=== PATIENT | female | born 1940 | race Caucasian/White ===

== ENCOUNTER → 2021-09-01 | Outpatient (CLI) | payer MEDICARE ==
[2021-09-01 12:19] LABS: BASO # 0.08 K/mm3 (0.02-0.10); EOS # 0.08 K/mm3 (0.04-0.40); HEMOGLOBIN 8.7 g/dL (12.5-16.0); MEAN CELL VOLUME 88 fl (78-100); MEAN CORPUSCULAR HEMOGLOBIN 25 pg (27-31); MEAN CORPUSCULAR HGB CONC 28 g/dL (33-37); MEAN PLATELET VOLUME 10.3 fl (7.4-10.4); MONO # 0.98 K/mm3 (0.20-0.80); PLATELET COUNT 366 K/mm3 (130-400); RED BLOOD COUNT 3.52 M/mm3 (4.10-5.30); RED CELL DISTRIBUTION WIDTH 18.4 % (11.5-14.5); WHITE BLOOD COUNT 8.1 K/mm3 (4.8-10.8)
[2021-09-01 12:27] LABS: ALBUMIN 3.6 g/dL (3.4-4.8); POTASSIUM 4.2 mmol/L (3.5-5.1)
[2021-09-01 12:28] LABS: CALCIUM 8.8 mg/dL (8.3-10.5)
[2021-09-01 12:30] LABS: TOTAL PROTEIN 5.8 g/dL (6.2-8.1)
[2021-09-01 12:31] LABS: TOTAL BILIRUBIN 0.2 mg/dL (0.2-1.2)
== END ==
LOC: LAB 11:54
PROVIDERS: Internal Medicine
DX: D64.9 Anemia, unspecified (principal)

== ENCOUNTER → 2021-09-08 | Outpatient (CLI) | payer MEDICARE ==
[2021-09-08 13:05] LABS: BASO # 0.08 K/mm3 (0.02-0.10); EOS # 0.11 K/mm3 (0.04-0.40); EOS % 1.9 % (1.0-5.0); HEMATOCRIT 31.4 % (37.0-47.0); HEMOGLOBIN 9.1 g/dL (12.5-16.0); LYMPH# 1.58 K/mm3 (1.50-4.00); MEAN CELL VOLUME 87 fl (78-100); MEAN CORPUSCULAR HEMOGLOBIN 25 pg (27-31); MEAN CORPUSCULAR HGB CONC 29 g/dL (33-37); MEAN PLATELET VOLUME 10.2 fl (7.4-10.4); MONO # 0.65 K/mm3 (0.20-0.80); NEU # 3.45 K/mm3 (1.40-6.50); PLATELET COUNT 411 K/mm3 (130-400); RED BLOOD COUNT 3.61 M/mm3 (4.10-5.30); RED CELL DISTRIBUTION WIDTH 18.9 % (11.5-14.5); WHITE BLOOD COUNT 5.9 K/mm3 (4.8-10.8)
== END ==
LOC: LAB 12:32
PROVIDERS: Internal Medicine
DX: Z01.89 Encounter for other specified special examinations (principal)

== ENCOUNTER → 2021-10-19 | Outpatient (CLI) | payer MEDICARE ==
[2021-10-19 15:38] LABS: BASO # 0.06 K/mm3 (0.02-0.10); EOS # 0.08 K/mm3 (0.04-0.40); EOS % 1.2 % (1.0-5.0); HEMATOCRIT 36.2 % (37.0-47.0); HEMOGLOBIN 11.2 g/dL (12.5-16.0); LYMPH# 1.52 K/mm3 (1.50-4.00); MEAN CELL VOLUME 91 fl (78-100); MEAN CORPUSCULAR HEMOGLOBIN 28 pg (27-31); MEAN CORPUSCULAR HGB CONC 31 g/dL (33-37); MEAN PLATELET VOLUME 9.2 fl (7.4-10.4); MONO # 0.84 K/mm3 (0.20-0.80); NEU # 4.44 K/mm3 (1.40-6.50); PLATELET COUNT 284 K/mm3 (130-400); RED BLOOD COUNT 3.97 M/mm3 (4.10-5.30); RED CELL DISTRIBUTION WIDTH 18.2 % (11.5-14.5)
[2021-10-19 15:51] LABS: ALBUMIN 3.8 g/dL (3.4-4.8)
[2021-10-19 15:53] LABS: CALCIUM 9.4 mg/dL (8.3-10.5)
[2021-10-19 15:54] LABS: TOTAL PROTEIN 6.6 g/dL (6.2-8.1)
[2021-10-19 15:56] LABS: TOTAL BILIRUBIN 0.3 mg/dL (0.2-1.2)
== END ==
LOC: LAB 15:22
PROVIDERS: Internal Medicine
DX: D64.9 Anemia, unspecified (principal); J44.9 Chronic obstructive pulmonary disease, unspecified; K90.9 Intestinal malabsorption, unspecified

== ENCOUNTER → 2021-12-15 | Outpatient (CLI) | payer MEDICARE ==
[2021-12-15 16:52] LABS: BASO # 0.04 K/mm3 (0.02-0.10); EOS # 0.03 K/mm3 (0.04-0.40); EOS % 0.3 % (1.0-5.0); HEMATOCRIT 37.7 % (37.0-47.0); HEMOGLOBIN 11.9 g/dL (12.5-16.0); LYMPH# 1.92 K/mm3 (1.50-4.00); MEAN CELL VOLUME 95 fl (78-100); MEAN CORPUSCULAR HEMOGLOBIN 30 pg (27-31); MEAN CORPUSCULAR HGB CONC 32 g/dL (33-37); MEAN PLATELET VOLUME 9.2 fl (7.4-10.4); MONO # 0.88 K/mm3 (0.20-0.80); NEU # 6.58 K/mm3 (1.40-6.50); PLATELET COUNT 325 K/mm3 (130-400); RED BLOOD COUNT 3.99 M/mm3 (4.10-5.30); RED CELL DISTRIBUTION WIDTH 13.9 % (11.5-14.5); WHITE BLOOD COUNT 9.5 K/mm3 (4.8-10.8)
[2021-12-15 17:06] LABS: POTASSIUM 4.2 mmol/L (3.5-5.1)
[2021-12-15 17:07] LABS: CALCIUM 10.1 mg/dL (8.3-10.5)
[2021-12-15 17:08] LABS: TOTAL PROTEIN 7.2 g/dL (6.2-8.1)
[2021-12-15 17:10] LABS: TOTAL BILIRUBIN 0.3 mg/dL (0.2-1.2)
== END ==
LOC: LAB 16:05
PROVIDERS: Internal Medicine
DX: D64.9 Anemia, unspecified (principal); J44.9 Chronic obstructive pulmonary disease, unspecified; K21.9 Gastro-esophageal reflux disease without esophagitis; K92.89 Other specified diseases of the digestive system; K90.9 Intestinal malabsorption, unspecified

== ENCOUNTER → 2022-03-03 | Outpatient (CLI) | payer MEDICARE ==
[2022-03-03 11:31] LABS: BASO # 0.05 K/mm3 (0.02-0.10); EOS # 0.31 K/mm3 (0.04-0.40); EOS % 4.6 % (1.0-5.0); HEMATOCRIT 30.2 % (37.0-47.0); HEMOGLOBIN 9.7 g/dL (12.5-16.0); LYMPH# 1.19 K/mm3 (1.50-4.00); MEAN CELL VOLUME 98 fl (78-100); MEAN CORPUSCULAR HEMOGLOBIN 32 pg (27-31); MEAN CORPUSCULAR HGB CONC 32 g/dL (33-37); MEAN PLATELET VOLUME 10.1 fl (7.4-10.4); MONO # 0.95 K/mm3 (0.20-0.80); NEU # 4.29 K/mm3 (1.40-6.50); PLATELET COUNT 347 K/mm3 (130-400); RED BLOOD COUNT 3.08 M/mm3 (4.10-5.30); RED CELL DISTRIBUTION WIDTH 13.7 % (11.5-14.5); WHITE BLOOD COUNT 6.8 K/mm3 (4.8-10.8)
[2022-03-03 11:47] LABS: ALBUMIN 3.4 g/dL (3.4-4.8); POTASSIUM 4.1 mmol/L (3.5-5.1)
[2022-03-03 11:48] LABS: CALCIUM 8.7 mg/dL (8.3-10.5)
[2022-03-03 11:50] LABS: TOTAL PROTEIN 5.9 g/dL (6.2-8.1)
[2022-03-03 11:51] LABS: TOTAL BILIRUBIN 0.4 mg/dL (0.2-1.2)
[2022-03-03 11:56] LABS: MAGNESIUM 1.83 mg/dL (1.60-2.60)
== END ==
LOC: LAB 10:18
PROVIDERS: Internal Medicine
DX: I10 Essential (primary) hypertension (principal); K90.9 Intestinal malabsorption, unspecified; E03.8 Other specified hypothyroidism

== ENCOUNTER → 2022-03-05 | Outpatient (CLI) | payer MEDICARE | LOC: RAD 13:12 | DX: N20.0 Calculus of kidney (principal); N26.1 Atrophy of kidney (terminal); K44.9 Diaphragmatic hernia without obstruction or gangrene; N28.1 Cyst of kidney, acquired | CPT/HCPCS: Q9967 ==

== ENCOUNTER → 2022-04-05 | Outpatient (CLI) | payer MEDICARE ==
[2022-04-05 15:06] LABS: BASO # 0.06 K/mm3 (0.02-0.10); EOS # 0.15 K/mm3 (0.04-0.40); EOS % 2.1 % (1.0-5.0); HEMATOCRIT 36.6 % (37.0-47.0); HEMOGLOBIN 11.4 g/dL (12.5-16.0); LYMPH# 1.56 K/mm3 (1.50-4.00); MEAN CELL VOLUME 98 fl (78-100); MEAN CORPUSCULAR HEMOGLOBIN 31 pg (27-31); MEAN CORPUSCULAR HGB CONC 31 g/dL (33-37); MEAN PLATELET VOLUME 9.1 fl (7.4-10.4); MONO # 0.69 K/mm3 (0.20-0.80); NEU # 4.69 K/mm3 (1.40-6.50); PLATELET COUNT 263 K/mm3 (130-400); RED BLOOD COUNT 3.72 M/mm3 (4.10-5.30); RED CELL DISTRIBUTION WIDTH 14.3 % (11.5-14.5); WHITE BLOOD COUNT 7.2 K/mm3 (4.8-10.8)
[2022-04-05 15:17] LABS: ALBUMIN 4.1 g/dL (3.4-4.8); POTASSIUM 4.3 mmol/L (3.5-5.1)
[2022-04-05 15:18] LABS: CALCIUM 9.9 mg/dL (8.3-10.5)
[2022-04-05 15:20] LABS: TOTAL PROTEIN 6.9 g/dL (6.2-8.1)
[2022-04-05 15:21] LABS: TOTAL BILIRUBIN 0.3 mg/dL (0.2-1.2)
[2022-04-05 15:26] LABS: MAGNESIUM 1.72 mg/dL (1.60-2.60)
== END ==
LOC: LAB 14:50
PROVIDERS: Internal Medicine
DX: I10 Essential (primary) hypertension (principal); K90.9 Intestinal malabsorption, unspecified; E03.8 Other specified hypothyroidism; J44.9 Chronic obstructive pulmonary disease, unspecified

== ENCOUNTER → 2022-06-08 | Outpatient (CLI) | payer MEDICARE ==
[2022-06-08 12:56] LABS: BASO # 0.06 K/mm3 (0.02-0.10); EOS # 0.08 K/mm3 (0.04-0.40); EOS % 1.3 % (1.0-5.0); HEMATOCRIT 37.9 % (37.0-47.0); HEMOGLOBIN 11.9 g/dL (12.5-16.0); LYMPH# 1.56 K/mm3 (1.50-4.00); MEAN CELL VOLUME 98 fl (78-100); MEAN CORPUSCULAR HEMOGLOBIN 31 pg (27-31); MEAN CORPUSCULAR HGB CONC 31 g/dL (33-37); MEAN PLATELET VOLUME 9.7 fl (7.4-10.4); MONO # 0.58 K/mm3 (0.20-0.80); NEU # 3.88 K/mm3 (1.40-6.50); PLATELET COUNT 267 K/mm3 (130-400); RED BLOOD COUNT 3.88 M/mm3 (4.10-5.30); RED CELL DISTRIBUTION WIDTH 14.1 % (11.5-14.5); WHITE BLOOD COUNT 6.2 K/mm3 (4.8-10.8)
[2022-06-08 13:00] LABS: POTASSIUM 4.3 mmol/L (3.5-5.1)
[2022-06-08 13:01] LABS: CALCIUM 9.1 mg/dL (8.3-10.5)
[2022-06-08 13:02] LABS: TOTAL PROTEIN 6.9 g/dL (6.2-8.1)
[2022-06-08 13:04] LABS: TOTAL BILIRUBIN 0.3 mg/dL (0.2-1.2)
[2022-06-08 13:09] LABS: MAGNESIUM 1.67 mg/dL (1.60-2.60)
== END ==
LOC: LAB 12:15
PROVIDERS: Internal Medicine
DX: D64.9 Anemia, unspecified (principal); J44.9 Chronic obstructive pulmonary disease, unspecified; K21.9 Gastro-esophageal reflux disease without esophagitis; K92.89 Other specified diseases of the digestive system; K90.9 Intestinal malabsorption, unspecified; J45.909 Unspecified asthma, uncomplicated; I10 Essential (primary) hypertension